=== PATIENT | male | born 1975 | race Caucasian/White ===

== ENCOUNTER 2023-03-07 22:24 | Emergency (ER) | payer MEDICAID ==
[~2023-03-07] VITALS: Ht 190.5 cm; Wt 150.0 kg
[2023-03-07 22:30] VITALS: BP 153/106
== END 2023-03-07 22:56 ==
LOC: ER 22:24
DX: I10 Essential (primary) hypertension (principal); Z65.0 Conviction in civil and criminal proceedings without imprisonment
CPT/HCPCS: 99283

== ENCOUNTER 2023-04-26 02:15 | Emergency (ER) | payer MEDICAID ==
[~2023-04-26] VITALS: Ht 190.5 cm; Wt 154.6 kg
[2023-04-26] MEDS ORDERED: lisinopril 10 MG tablet PO ONE (02:30)
[2023-04-26] MEDS: furosemide 20MG tablet PO ONE ×2 (02:53→02:58)
[2023-04-26 02:59] VITALS: BP 155/98
--- NOTE | 2023-04-26 03:01 | NUR ---
pt seen, tx and d/c by [email or web address]. no assigned rn.
== END 2023-04-26 03:01 ==
LOC: ER 02:15
DX: R60.0 Localized edema (principal); I10 Essential (primary) hypertension; Z72.89 Other problems related to lifestyle
CPT/HCPCS: 99283